=== PATIENT | male | born 1975 | race Caucasian/White ===

== ENCOUNTER 2017-06-28 11:54 | Emergency (ER) | payer SELFPAY ==
[~2017-06-28] VITALS: Ht 180.3 cm; Wt 127.0 kg
[~2017-06-28 11:54] MED LIST: 'PARAFON FORTE500 M1 PO; ATARAX25 MG PO; BACTRIM DS 8001 TA1 PO; CLINDAMYCIN150 MG PO; COLSALIDE IMPR0.6 MG PO; CORDROL20 MG PO; FLEXERIL10 MG PO; HYDROCODONE BIT1 T11 PO; INDOCIN50 MG PO; INDOMETHACIN50 MG PO; MEDROL DOSEPAK4 MG PO; MOBIC7.5 MG PO; MULTIPLE VITAMI1 CAP PO; NAPROSYN500 MG PO; ONE DAILY1 TA1; PERCOCET 325 MG1 TA2 PO; PREDNICOT20 MG PO; PREDNISONE PO; PREDNISONE20 MG PO; ROBAXIN-750750 MG PO; TORADOL10 MG PO; TRAMADOL HCL50 MG PO; ULTRAM50 MG PO; VICODIN 5/500 505 MG PO; VICODIN1 TAB PO; VITAMIN B121000 MCG PO; ZITHROMAX250 MG PO; ZITHROMAX500 MG PO; [UNRECOGNIZED DRUG - OTHER]
[2017-06-28] MEDS ORDERED: MEDROL DOSEPAK4 MG PO (12:38)
== END 2017-06-28 12:46 | disposition home or self-care (01) ==
LOC: ED 11:54
DX: L23.9 Allergic contact dermatitis, unspecified cause (principal); Z88.0 Allergy status to penicillin; Z91.030 Bee allergy status

== ENCOUNTER 2017-06-30 03:29 | Emergency (ER) | payer SELFPAY ==
[~2017-06-30] VITALS: Ht 180.3 cm; Wt 127.0 kg
[2017-06-30] MEDS ORDERED: KEFLEX500 M1 PO (04:20)
== END 2017-06-30 04:22 | disposition home or self-care (01) ==
LOC: ED 03:29
DX: S01.511A Laceration without foreign body of lip, initial encounter (principal); I10 Essential (primary) hypertension; Z79.899 Other long term (current) drug therapy; Z91.030 Bee allergy status; Z88.0 Allergy status to penicillin; Y04.0XXA Assault by unarmed brawl or fight, initial encounter; Y93.89 Activity, other specified; Y92.89 Other specified places as the place of occurrence of the external cause; Y99.8 Other external cause status

== ENCOUNTER 2017-08-29 03:50 | Emergency (ER) | payer OTHER ==
[~2017-08-29] VITALS: Ht 180.3 cm; Wt 122.0 kg
[~2017-08-29 03:50] MED LIST changes: +KEFLEX500 M1 PO
[2017-08-29] MEDS ORDERED: CYCLOBENZAPRINE10 MG PO (05:07)
[2017-08-29] MEDS ORDERED: MOBIC7.5 MG PO (05:07)
== END 2017-08-29 05:20 | disposition home or self-care (01) ==
LOC: ED 03:50
DX: S39.012A Strain of muscle, fascia and tendon of lower back, initial encounter (principal); Z91.030 Bee allergy status; Z88.0 Allergy status to penicillin; Z79.899 Other long term (current) drug therapy; V89.2XXA Person injured in unspecified motor-vehicle accident, traffic, initial encounter; Y93.89 Activity, other specified; Y92.89 Other specified places as the place of occurrence of the external cause; Y99.8 Other external cause status

== ENCOUNTER 2017-12-16 22:18 | Emergency (ER) | payer OTHER ==
[~2017-12-16] VITALS: Ht 180.3 cm; Wt 122.5 kg
[~2017-12-16 22:18] MED LIST changes: +CYCLOBENZAPRINE10 MG PO
[2017-12-16] MEDS ORDERED: DEPAKOTE250 MG PO (22:24)
[2017-12-16] MEDS ORDERED: PREDNISONE10 MG PO (22:38)
== END 2017-12-16 22:57 | disposition home or self-care (01) ==
LOC: ED 22:18
DX: L23.7 Allergic contact dermatitis due to plants, except food (principal); Z90.89 Acquired absence of other organs; Z79.899 Other long term (current) drug therapy; Z91.030 Bee allergy status; Z88.0 Allergy status to penicillin

== ENCOUNTER 2018-08-01 12:00 | Emergency (ER) | payer MEDICAID ==
[~2018-08-01] VITALS: Ht 180.3 cm; Wt 123.4 kg
[~2018-08-01 12:00] MED LIST changes: +DEPAKOTE250 MG PO; +PREDNISONE10 MG PO
[2018-08-01] MEDS ORDERED: CYCLOBENZAPRINE10 MG PO (12:07)
[2018-08-01] MEDS ORDERED: PREDNISONE50 MG PO (12:07)
[2018-08-01] MEDS ORDERED: NAPROSYN500 MG PO (12:07)
[2018-08-16] MEDS ORDERED: MUCINEX ER600 MG PO (08:17)
[2018-08-16] MEDS ORDERED: AVPAK AZITHROM250 MG PO (08:17)
== END 2018-08-01 14:37 | disposition home or self-care (01) ==
LOC: ED 12:00
DX: S39.012A Strain of muscle, fascia and tendon of lower back, initial encounter (principal); Z91.030 Bee allergy status; Z88.0 Allergy status to penicillin; Z79.899 Other long term (current) drug therapy; X50.1XXA Overexertion from prolonged static or awkward postures, initial encounter; Y93.89 Activity, other specified; Y92.89 Other specified places as the place of occurrence of the external cause; Y99.8 Other external cause status

== ENCOUNTER 2018-10-22 07:35 | Emergency (ER) | payer SELFPAY ==
[~2018-10-22] VITALS: Ht 182.8 cm; Wt 120.2 kg
[~2018-10-22 07:35] MED LIST changes: +AVPAK AZITHROM250 MG PO; +MUCINEX ER600 MG PO; +PREDNISONE50 MG PO
== END 2018-10-22 09:15 | disposition home or self-care (01) ==
LOC: ED 07:35
DX: K12.0 Recurrent oral aphthae (principal); J02.8 Acute pharyngitis due to other specified organisms; B97.89 Other viral agents as the cause of diseases classified elsewhere; E78.5 Hyperlipidemia, unspecified; I10 Essential (primary) hypertension; E66.01 Morbid (severe) obesity due to excess calories; Z68.43 Body mass index [BMI] 50.0-59.9, adult; F17.200 Nicotine dependence, unspecified, uncomplicated; Z91.030 Bee allergy status; Z88.0 Allergy status to penicillin

== ENCOUNTER 2019-02-05 08:58 | Emergency (ER) | payer MEDICAID ==
[~2019-02-05] VITALS: Ht 180.3 cm; Wt 122.5 kg
[2019-02-05] MEDS ORDERED: PREDNISONE50 MG PO (09:20)
[2019-02-05] MEDS ORDERED: NAPROSYN500 MG PO (09:20)
== END 2019-02-05 09:24 | disposition home or self-care (01) ==
LOC: ED 08:58
DX: M10.071 Idiopathic gout, right ankle and foot (principal); F17.290 Nicotine dependence, other tobacco product, uncomplicated; Z91.030 Bee allergy status; Z88.0 Allergy status to penicillin

== ENCOUNTER 2019-06-05 13:24 | Emergency (ER) | payer SELFPAY ==
--- NOTE | ~2019-06-05 | EKG ---
[place], [place] ELECTROCARDIOGRAM REPORT NAME: CHARLES BLANTON UNIT #: [id number] ROOM: DOCTOR: RD DRAFT REPORT BIRTHDATE: [address] [facility] Test Date: 2019-06-05 Test Time: 13:33:44 Pat Name: CHARLES BLANTON Department: Room: Gender: Detention Attendant: : 1975 Requested By: ALONZO ERAZO Order Number: [id number] Reading MD: Grady Jay MD Measurements Intervals Dailey Rate: 77 P: 48 FL: 144 QRS: 69 QRSD: 89 T: 22 QT: 362 QTc: 410 Interpretive Statements Sinus rhythm Minimal ST elevation, anterior leads Electronically Signed On 06-09-2019 17:55:21 PDT by Grady Jay MD CM:EKGRPT:ELECTROCARDIOGRAM REPORT [id number] ALONZO SULTANA DRAFT REPORT ALONZO ERAZO M.D.
[2019-06-05 13:50] LABS: BASO # 0.1 10*3/uL (0.0-0.1); BASO % 0.6 % (0.0-1.0); EOS # 0.5 10*3/uL (0.0-0.4); EOS % 5.5 % (1.0-4.0); HEMATOCRIT 43.5 % (42.0-52.0); HEMOGLOBIN 14.8 g/dl (14.0-18.0); LYMPH # 2.2 10*3/uL (1.3-4.4); MEAN CELL VOLUME 88.8 fl (80.0-94.0); MEAN CORPUSCULAR HGB 30.2 pg (27.0-31.0); MEAN PLATELET VOLUME 10.7 fl (9.6-12.3); MONO # 0.9 10*3/uL (0.1-1.0); MONO % 9.8 % (3.0-9.0); NEUT # 5.3 10*3/uL (2.3-7.9); NEUT % 58.9 % (47.0-73.0); PLATELET COUNT AUTOMATED 248 10*3/uL (130-400); RED CELL DISTRI WIDTH 12.7 % (0-14.5)
[2019-06-05 14:02] LABS: ACT PARTIAL THROMBO TIME 26.8 SECONDS (20.0-32.1); INTERNATIONAL NORM RATIO 0.9 (2.0-3.5)
[2019-06-05 14:08] LABS: ALBUMIN 3.6 gm/dl (3.1-4.5); ALKALINE PHOSPHATASE 53 U/L (45-117); BUN 14 mg/dl (7-24); CHLORIDE 103 mmol/L (98-107); CREATININE 1.26 mg/dL (0.70-1.30); POTASSIUM 4.3 mmol/L (3.5-5.1); SGOT/AST 25 IU/L (3-35); SGPT/ALT 25 U/L (12-78); SODIUM 136 mmol/L (136-145); TOTAL PROTEIN 7.3 gm/dL (6.4-8.2)
[2019-06-05 14:10] LABS: TROPONIN I < 0.015 ng/ml (<0.045)
== END 2019-06-05 15:19 | disposition home or self-care (01) ==
LOC: ED 13:24
PROVIDERS: Emergency Medicine
DX: R07.89 Other chest pain (principal); Z91.030 Bee allergy status; Z88.0 Allergy status to penicillin; Z72.0 Tobacco use; X50.0XXA Overexertion from strenuous movement or load, initial encounter; Y93.89 Activity, other specified; Y92.89 Other specified places as the place of occurrence of the external cause; Y99.0 Civilian activity done for income or pay

== ENCOUNTER 2019-11-16 10:28 | Emergency (ER) | payer BC ==
[~2019-11-16] VITALS: Ht 180.3 cm; Wt 136.1 kg
[2019-11-16] MEDS ORDERED: ALLOPURINOL100 MG PO (10:49)
[2019-11-16] MEDS ORDERED: MEDROL DOSEPAK4 MG PO (10:49)
== END 2019-11-16 10:52 | disposition home or self-care (01) ==
LOC: ED 10:28
DX: M10.9 Gout, unspecified (principal); E78.5 Hyperlipidemia, unspecified; I10 Essential (primary) hypertension; F17.200 Nicotine dependence, unspecified, uncomplicated; Z88.0 Allergy status to penicillin; Z91.030 Bee allergy status; Z79.2 Long term (current) use of antibiotics; Z79.899 Other long term (current) drug therapy

== ENCOUNTER 2019-12-04 07:36 | Emergency (ER) | payer BC ==
[~2019-12-04] VITALS: Ht 182.8 cm; Wt 131.5 kg
[~2019-12-04 07:36] MED LIST changes: +ALLOPURINOL100 MG PO
[2019-12-04] MEDS ORDERED: MEDROL DOSEPAK4 MG PO (07:51)
[2019-12-04] MEDS ORDERED: ALLOPURINOL300 MG PO (07:51)
== END 2019-12-04 07:59 | disposition home or self-care (01) ==
LOC: ED 07:36
DX: M10.9 Gout, unspecified (principal); E78.5 Hyperlipidemia, unspecified; E66.01 Morbid (severe) obesity due to excess calories; I10 Essential (primary) hypertension; Z91.030 Bee allergy status; Z88.0 Allergy status to penicillin; Z68.43 Body mass index [BMI] 50.0-59.9, adult

== ENCOUNTER 2020-01-26 14:30 | Emergency (ER) | payer BC ==
[~2020-01-26] VITALS: Ht 182.8 cm; Wt 129.3 kg
[~2020-01-26 14:30] MED LIST changes: +ALLOPURINOL300 MG PO
[2020-01-26 16:22] LABS: BUN 9 mg/dl (7-24); CHLORIDE 106 mmol/L (98-107); CREATININE 1.15 mg/dL (0.70-1.30); POTASSIUM 3.9 mmol/L (3.5-5.1); SODIUM 140 mmol/L (136-145); URIC ACID 8.3 mg/dL (3.5-7.2)
== END 2020-01-26 17:14 | disposition home or self-care (01) ==
LOC: ED 14:30
PROVIDERS: Emergency Medicine
DX: M10.9 Gout, unspecified (principal); E78.5 Hyperlipidemia, unspecified; I10 Essential (primary) hypertension; Z88.0 Allergy status to penicillin; Z88.8 Allergy status to other drugs, medicaments and biological substances; Z79.899 Other long term (current) drug therapy